=== PATIENT | female | born 1990 | race Two or more races ===

== ENCOUNTER 2019-08-04 23:01 | Emergency (ER) | payer MEDICAID ==
[~2019-08-04] VITALS: Ht 165.1 cm; Wt 49.9 kg
--- NOTE | 2019-08-04 23:16 | NUR ---
"LOWER BACK PAIN X1 DAY, NAUSEA/VOMITINGHASNT TAKEN INSULIN IN "YEARS" FOR DM" PT AWAKE, ALERT, PT ON MONITOR, VSS, NAD NOTED, PENDING MD MURCIA
[2019-08-05] MEDS ORDERED: ONDANSETRON HCL/PF 4 MG/2 ML VIAL ONE ×2 (00:01→03:03)
[2019-08-05 00:06] LABS: BASOPHILS # (AUTO) 0.1 /CMM (0.0-0.2); BASOPHILS % (AUTO) 0.7 % (0.0-2.0); EOSINOPHILS % (AUTO) 0.4 % (0.0-6.0); HEMATOCRIT 50 % (33-45); HEMOGLOBIN 17.5 g/dL (11.5-14.8); LYMPHOCYTES # (AUTO) 1.6 /CMM (0.8-4.8); LYMPHOCYTES % (AUTO) 12.3 % (20.0-44.0); MEAN CORPUSCULAR HGB CONC 35 g/dl (31.0-36.0); MEAN CORPUSCULAR VOLUME 93 fL (82-100); MONOCYTES # (AUTO) 0.3 /CMM (0.1-1.30); MONOCYTES % (AUTO) 2.3 % (2.0-12.0); NEUTROPHILS # (AUTO) 11.2 /CMM (1.8-8.9); NEUTROPHILS % (AUTO) 84.3 % (43.0-81.0); PLATELET COUNT (AUTO) 289 /CMM (150-450); RED BLOOD CELL COUNT(AUTO) 5.34 MIL/uL (4.0-5.2); WHITE BLOOD COUNT (AUTO) 13.2 K/uL (4.3-11.0)
[2019-08-05 00:21] LABS: ABG BASE EXCESS -2.5 mmol/L; ABG PH 7.382 (7.350-7.450); ABG PO2 90.6 mmHg (75.0-100.0); AaDO2 13.6 mmHg; COHb 1.2 % (0.5-1.5); MetHb 0.4 % (0.0-1.5); O2Hb 95.4 % (94.0-97.0); VENT MODE, BG ROOM AIR
--- NOTE | 2019-08-05 00:21 | NUR ---
URINE COLLECTED AND SENT TO LAB
[2019-08-05 00:22] LABS: CALCIUM, SERUM 9.4 mg/dL (8.5-10.1); CARBON DIOXIDE 25 mmol/L (21-32); CHLORIDE 98 mmol/L (98-107); CREATININE 0.7 mg/dL (0.6-1.3); GLUCOSE 343 mg/dL (74-106); POTASSIUM 4.5 mmol/L (3.5-5.1); SODIUM SERUM 133 mmol/L (136-145); UREA NITROGEN, BLOOD 9 mg/dL (7-18)
[2019-08-05 00:32] LABS: ALANINE AMINOTRANSFERASE 7 U/L (12-78); ALBUMIN 4.4 g/dL (3.4-5.0); ALKALINE PHOSPHATASE 113 U/L (46-116); ASPARTATE AMINOTRANSFERASE 18 U/L (15-37); BILIRUBIN,DIRECT 0.2 mg/dL (0.0-0.2); BILIRUBIN,TOTAL 0.8 mg/dL (0.2-1.0); TOTAL PROTEIN, SERUM 8.5 g/dL (6.4-8.2)
[2019-08-05 00:32] LABS: APPEARANCE,URINE Cloudy (CLEAR); BILIRUBIN,URINE Negative (NEGATIVE); BLOOD, URINE Negative Ery/uL (NEGATIVE); COLOR,URINE Yellow (YELLOW); KETONES,URINE >=160 (NEGATIVE); LEUKOCYTE ESTERASE ,URINE Negative (NEGATIVE); NITRITE, URINE Positive (NEGATIVE); PH,URINE 5.5 (5.0-8.0); PROTEIN,URINE 30 mg/dl (NEGATIVE); UGLUCOSE 500 MG/DL mg/dL (NEGATIVE); UROBILINOGEN,URINE 0.2 EU/dL (0.2)
[2019-08-05 00:49] LABS: MAGNESIUM 1.8 mg/dL (1.8-2.4); PHOSPHORUS 3.5 mg/dL (2.5-4.9)
[2019-08-05 00:53] LABS: ALCOHOL, BLOOD < 3 mg/dL (0-0)
[2019-08-05] MEDS ORDERED: KETOROLAC TROMETHAMINE INJ 30 MG/ML VIAL ONE (01:22)
[2019-08-05] MEDS ORDERED: MEROPENEM 1 G VIAL IV ONE (01:22)
[2019-08-05] MEDS ORDERED: MEROPENEM 1,000 MG in IV NS 0.9% 100 ML IV ONE (01:30)
[2019-08-05] MEDS ORDERED: KETOROLAC TROMETHAMINE INJ 30 MG/ML VIAL IV ONE (01:30)
[2019-08-05 01:40] LABS: BACTERIA,URINE Many /HPF (None Seen); RBC,URINE 0-2 /HPF (0-2); SQUAMOUS EPITHELIAL CELL,UR Few /HPF (None Seen)
--- NOTE | 2019-08-05 01:42 | NUR ---
REPORT GIVEN TO SIMONE SANTA FOR BALDO PT WILL BE TRANSPORTED TO 3RD FLOOR
[2019-08-05] MEDS ORDERED: IV NS 0.9% 1,000 ML BAG IV ONE ×2 (02:00)
[2019-08-05] MEDS ORDERED: ONDANSETRON HCL/PF - ER 4 MG/2 ML VIAL IV ONE ×2 (03:00)
[2019-08-05] MEDS ORDERED: INSULIN LISPRO/ASPART 100 UNIT/ML CARTRIDGE SQ ONE (03:30)
[2019-08-05] MEDS ORDERED: LORAZEPAM INJ 2 MG/ML VIAL ONE (03:35)
--- NOTE | 2019-08-05 03:59 | NUR ---
PT ACCEPTED TO [facility] BY DR STACK. ROOM 504. # FOR REPORT [phone]. AUTH FOR TRANSPORT [id number]
[2019-08-05] MEDS ORDERED: LORAZEPAM INJ 2 MG/ML VIAL IV ONE (04:00)
--- NOTE | 2019-08-05 04:06 | NUR ---
[facility]UCILLE [facility] EAT 0476. TRIP# [id number]
[2019-08-05 04:48] VITALS: BP 105/60
--- NOTE | 2019-08-05 05:27 | NUR ---
LUCILLE AT BEDSIDE FOR TRANSPORT TO [facility].
== END 2019-08-05 05:39 | disposition short-term general hospital (02) ==
LOC: ER 23:54
DX: N12 Tubulo-interstitial nephritis, not specified as acute or chronic (principal); E11.65 Type 2 diabetes mellitus with hyperglycemia; E86.0 Dehydration; F19.10 Other psychoactive substance abuse, uncomplicated; R00.0 Tachycardia, unspecified; F12.10 Cannabis abuse, uncomplicated; F15.10 Other stimulant abuse, uncomplicated; Z88.0 Allergy status to penicillin; Z60.2 Problems related to living alone
CPT/HCPCS: 36415; 36600 ×2; 51702; 71045; 80048; 80076; 80305; 80307; 81001; 82803; 82962 ×4; 83605; 83735; 84100; 84145; 84484; 84702; 85025; 85730; 87040 ×2; 87081; 87086; 93005; 96361; 96365; 96372; 96375; 96376; 99285; J1815; J1885; J2060; J2185 ×2; J2405 ×4; J7030 ×4; J7040 ×2; 81000-TC; 87186-TC; G0480

== ENCOUNTER 2020-03-01 16:32 | Emergency (ER) | payer MEDICAID, OTHER ==
[~2020-03-01] VITALS: Ht 165.1 cm; Wt 49.9 kg
[2020-03-01] MEDS ORDERED: HYDROCODONE/APAP 5/325MG 1 EACH TABLET ONE (19:32)
[2020-03-01] MEDS: HYDROCODONE/APAP 5/325MG 1 EACH TABLET PO ONE (19:39)
--- NOTE | 2020-03-01 19:40 | NUR ---
URINE COLLECTED VIA CLEAN CATCH AND SENT TO LAB
[2020-03-01 19:45] LABS: APPEARANCE,URINE Cloudy (CLEAR); BILIRUBIN,URINE Negative (NEGATIVE); BLOOD, URINE Trace-intact Ery/uL (NEGATIVE); COLOR,URINE Yellow (YELLOW); KETONES,URINE 40 (NEGATIVE); LEUKOCYTE ESTERASE ,URINE Negative (NEGATIVE); NITRITE, URINE Negative (NEGATIVE); PH,URINE 6.5 (5.0-8.0); PROTEIN,URINE 30 mg/dl (NEGATIVE); UGLUCOSE 500 MG/DL mg/dL (NEGATIVE)
[2020-03-01 19:58] LABS: BACTERIA,URINE Many /HPF (None Seen)
[2020-03-01 21:53] VITALS: BP 118/76
--- NOTE | 2020-03-01 21:53 | NUR ---
Patient discharged to home in stable condition. Written and verbal after care instructions given. Patient verbalizes understanding of instruction. Pt ambulatory with a steady gait
== END 2020-03-01 21:54 | disposition home or self-care (01) ==
LOC: ER 16:37
DX: M54.5 Low back pain (principal); N39.0 Urinary tract infection, site not specified; E10.65 Type 1 diabetes mellitus with hyperglycemia; Z88.0 Allergy status to penicillin; V49.59XA Passenger injured in collision with other motor vehicles in traffic accident, initial encounter; Y93.89 Activity, other specified; Y92.413 State road as the place of occurrence of the external cause; Y99.8 Other external cause status
CPT/HCPCS: 72131-TC; 81000-TC; 82962-TC; 84703-TC; 87086-TC

== ENCOUNTER 2020-05-26 19:59 | Emergency (ER) | payer MEDICAID ==
[~2020-05-26] VITALS: Ht 162.6 cm; Wt 53.1 kg
[2020-05-26] MEDS ORDERED: ONDANSETRON HCL/PF 4 MG/2 ML VIAL ONE ×2 (20:13→22:06)
[2020-05-26] MEDS ORDERED: MORPHINE SULFATE INJ 4 MG/ML DISP.SYRIN ONE ×2 (20:13→22:06)
--- NOTE | 2020-05-26 20:16 | NUR ---
PATIENT CAME TO ER BED 9 BIB RA C/O NAUSEA AND VOMITING, ALONG WITH BLOOD SUGAR OF 395, PER RESCUE AMBULANCE REPORT. PATIENT STATES THAT SHE HAD UPPER BACK PAIN SINCE A MONTH AGO FROM A FALL. PATIENT STATES THAT SHE HAS BEEN VOMITING SINCE TODAY. PATIENT STATES THAT SHE ALSO HAD METH RECENTLY, BUT COULD NOT RECALL HOW LONG AGO. PATIENT IS AAOX4. NO SOB. BREATHING EVENLY AND UNLABORED ON ROOM AIR. CONNECTED TO MONITOR
--- NOTE | 2020-05-26 20:20 | NUR ---
SENIOR INSIGHT MANAGER INTERNATIONAL AT BEDSIDE FOR BLOOD DRAW
[2020-05-26 20:29] LABS: BASOPHILS # (AUTO) 0.1 /CMM (0.0-0.2); BASOPHILS % (AUTO) 0.8 % (0.0-2.0); EOSINOPHILS % (AUTO) 0.9 % (0.0-6.0); HEMATOCRIT 44 % (33-45); HEMOGLOBIN 14.9 g/dL (11.5-14.8); LYMPHOCYTES # (AUTO) 1.6 /CMM (0.8-4.8); LYMPHOCYTES % (AUTO) 14.8 % (20.0-44.0); MEAN CORPUSCULAR HGB CONC 34 g/dl (31.0-36.0); MEAN CORPUSCULAR VOLUME 91 fL (82-100); MONOCYTES # (AUTO) 0.3 /CMM (0.1-1.30); MONOCYTES % (AUTO) 2.6 % (2.0-12.0); NEUTROPHILS # (AUTO) 8.8 /CMM (1.8-8.9); NEUTROPHILS % (AUTO) 80.9 % (43.0-81.0); PLATELET COUNT (AUTO) 366 /CMM (150-450); RED BLOOD CELL COUNT(AUTO) 4.86 MIL/uL (4.0-5.2); WHITE BLOOD COUNT (AUTO) 10.9 K/uL (4.3-11.0)
[2020-05-26] MEDS ORDERED: IV NS 0.9% 1,000 ML BAG IV ONE ×2 (20:30→21:30)
[2020-05-26] MEDS ORDERED: ONDANSETRON HCL/PF 4 MG/2 ML VIAL IVP ONE ×2 (20:30→22:00)
[2020-05-26] MEDS ORDERED: MORPHINE SULFATE INJ 2 MG/ML DISP.SYRIN IV ONE ×2 (20:30→22:00)
--- NOTE | 2020-05-26 20:30 | NUR ---
ADDENDUM: Intravenous End Time Documentation: Normal saline 1 liter (IV-WO) : start time: 2029 ; end time: 2129 : IV site: Left Hand PIV # 20 Port # 1
[2020-05-26 20:46] LABS: ALBUMIN 4.1 g/dL (3.4-5.0); BILIRUBIN,DIRECT 0.1 mg/dL (0.0-0.2); BILIRUBIN,TOTAL 0.4 mg/dL (0.2-1.0); CALCIUM, SERUM 9.1 mg/dL (8.5-10.1); CREATININE 0.7 mg/dL (0.6-1.3); POTASSIUM 3.9 mmol/L (3.5-5.1)
[2020-05-26] MEDS ORDERED: INSULIN REGULAR, HUMAN 100 UNIT/ML 10 ML VIAL ONE (21:22)
[2020-05-26] MEDS ORDERED: INSULIN REGULAR, HUMAN 100 UNIT/ML 10 ML VIAL SQ ONE (21:30)
--- NOTE | 2020-05-26 23:30 | NUR ---
IV removed. Catheter intact and site benign. Pressure and 4x4 applied to site. No bleeding noted.
[2020-05-26 23:31] VITALS: BP 129/82
--- NOTE | 2020-05-26 23:31 | NUR ---
Patient discharged to home in stable condition. Written and verbal after care instructions given. Patient verbalizes understanding of instruction.
--- NOTE | 2020-05-26 23:31 | NUR ---
Picked up by aunt's roomate (Mitchell).
--- NOTE | 2020-05-26 23:31 | NUR ---
Patient is ambulatory with a steady gait.
== END 2020-05-26 23:31 | disposition home or self-care (01) ==
LOC: ER 20:00
DX: E11.65 Type 2 diabetes mellitus with hyperglycemia (principal); M54.5 Low back pain; Z88.0 Allergy status to penicillin
CPT/HCPCS: 36415; 80048; 80076; 82962 ×3; 83690; 85025; 96361; 96372; 96374; 96375; 96376; 99285; J1815; J2270 ×2; J2405 ×2; J7030 ×2

== ENCOUNTER 2020-06-15 11:38 | Emergency (ER) | payer MEDICAID ==
[~2020-06-15] VITALS: Ht 152.4 cm; Wt 52.2 kg
--- NOTE | 2020-06-15 11:40 | NUR ---
PT BIBA RA 39 From Home "Back pain/Nausea/vomiting BS 406" PT IS AAOX4, NOT IN RESPIRATORY DISTRESS, HOOKED TO SIZE STAMPER, KEPT RESTED AND COMFORTABLE. WILL CONTINUE TO MONITOR.
--- NOTE | 2020-06-15 11:44 | NUR ---
SEEN AND EXAMINED BY .
--- NOTE | 2020-06-15 11:50 | NUR ---
URINE SPECIMEN COLLECTED AND SENT TO LAB.
--- NOTE | 2020-06-15 11:59 | NUR ---
ER PHLEB AT BEDSIDE FOR BLOOD DRAW.
[2020-06-15] MEDS ORDERED: IV NS 0.9% 1,000 ML BAG IV ONE ×2 (12:00→13:30)
[2020-06-15] MEDS ORDERED: MORPHINE SULFATE INJ 2 MG/ML DISP.SYRIN IV ONE (12:00)
[2020-06-15] MEDS ORDERED: ONDANSETRON HCL/PF 4 MG/2 ML VIAL ONE (12:01)
[2020-06-15] MEDS ORDERED: MORPHINE SULFATE INJ 4 MG/ML DISP.SYRIN ONE (12:02)
[2020-06-15 12:15] LABS: BASOPHILS # (AUTO) 0.1 /CMM (0.0-0.2); BASOPHILS % (AUTO) 0.7 % (0.0-2.0); EOSINOPHILS % (AUTO) 0.1 % (0.0-6.0); HEMATOCRIT 45 % (33-45); HEMOGLOBIN 15.3 g/dL (11.5-14.8); LYMPHOCYTES # (AUTO) 1.5 /CMM (0.8-4.8); LYMPHOCYTES % (AUTO) 12.3 % (20.0-44.0); MEAN CORPUSCULAR HGB CONC 34 g/dl (31.0-36.0); MEAN CORPUSCULAR VOLUME 92 fL (82-100); MONOCYTES # (AUTO) 0.4 /CMM (0.1-1.30); MONOCYTES % (AUTO) 2.9 % (2.0-12.0); NEUTROPHILS # (AUTO) 10.1 /CMM (1.8-8.9); PLATELET COUNT (AUTO) 292 /CMM (150-450); RED BLOOD CELL COUNT(AUTO) 4.91 MIL/uL (4.0-5.2); WHITE BLOOD COUNT (AUTO) 12.1 K/uL (4.3-11.0)
[2020-06-15] MEDS ORDERED: ONDANSETRON HCL/PF 4 MG/2 ML VIAL IV ONE (12:30)
[2020-06-15 12:44] LABS: ALBUMIN 3.8 g/dL (3.4-5.0); BILIRUBIN,DIRECT 0.2 mg/dL (0.0-0.2); BILIRUBIN,TOTAL 0.6 mg/dL (0.2-1.0); CREATININE 0.6 mg/dL (0.6-1.3); POTASSIUM 3.7 mmol/L (3.5-5.1); TOTAL PROTEIN, SERUM 7.8 g/dL (6.4-8.2)
[2020-06-15 12:52] LABS: APPEARANCE,URINE CLEAR (CLEAR); BILIRUBIN,URINE NEGATIVE (NEGATIVE); BLOOD, URINE NEGATIVE Ery/uL (NEGATIVE); COLOR,URINE YELLOW (YELLOW); KETONES,URINE 15 (NEGATIVE); LEUKOCYTE ESTERASE ,URINE NEGATIVE (NEGATIVE); NITRITE, URINE NEGATIVE (NEGATIVE); PROTEIN,URINE NEGATIVE (NEGATIVE); UGLUCOSE >=1000 mg/dL (NEGATIVE); UROBILINOGEN,URINE 0.2 EU/dL (0.2)
[2020-06-15] MEDS ORDERED: INSULIN REGULAR, HUMAN 100 UNIT/ML 10 ML VIAL ONE (12:58)
[2020-06-15] MEDS ORDERED: INSULIN REGULAR, HUMAN 100 UNIT/ML 10 ML VIAL SQ ONE (13:00)
[2020-06-15 13:16] LABS: BACTERIA,URINE Rare /HPF (None Seen); SQUAMOUS EPITHELIAL CELL,UR Few /HPF (None Seen)
[2020-06-15 14:08] VITALS: BP 143/91
== END 2020-06-15 14:10 | disposition home or self-care (01) ==
LOC: ER 11:39
DX: E11.65 Type 2 diabetes mellitus with hyperglycemia (principal); M54.5 Low back pain; G89.29 Other chronic pain; Z88.0 Allergy status to penicillin
CPT/HCPCS: 36415; 80048; 80076; 81001; 82962 ×2; 84703; 85025; 96361; 96372; 96374; 96375; 99284; J1815; J2270; J2405; J7030; 81000-TC

== ENCOUNTER 2020-09-17 23:51 | Emergency (ER) | payer MEDICAID ==
[~2020-09-17] VITALS: Ht 165.1 cm; Wt 49.9 kg
[2020-09-18] MEDS ORDERED: MORPHINE SULFATE INJ 2 MG/ML DISP.SYRIN IV ONE
[2020-09-18] MEDS ORDERED: IV NS 0.9% 1,000 ML BAG IV ONE
[2020-09-18] MEDS ORDERED: ONDANSETRON HCL/PF 4 MG/2 ML VIAL IVP ONE
--- NOTE | 2020-09-18 | NUR ---
BIBRA 102 FOR C/O ABD PAIN, N/V AND LOWER BACK PAIN X 1 DAY.
[2020-09-18 00:10] LABS: BASOPHILS % (AUTO) 0.2 % (0.0-2.0); EOSINOPHILS % (AUTO) 0.8 % (0.0-6.0); HEMATOCRIT 47 % (33-45); HEMOGLOBIN 15.6 g/dL (11.5-14.8); LYMPHOCYTES # (AUTO) 1.8 /CMM (0.8-4.8); LYMPHOCYTES % (AUTO) 13.4 % (20.0-44.0); MEAN CORPUSCULAR HGB CONC 34 g/dl (31.0-36.0); MEAN CORPUSCULAR VOLUME 92 fL (82-100); MONOCYTES # (AUTO) 0.4 /CMM (0.1-1.30); NEUTROPHILS % (AUTO) 82.6 % (43.0-81.0); PLATELET COUNT (AUTO) 376 /CMM (150-450); RED BLOOD CELL COUNT(AUTO) 5.07 MIL/uL (4.0-5.2); WHITE BLOOD COUNT (AUTO) 13.3 K/uL (4.3-11.0)
[2020-09-18] MEDS ORDERED: MORPHINE SULFATE INJ 4 MG/ML DISP.SYRIN ONE (00:10)
[2020-09-18] MEDS ORDERED: ONDANSETRON HCL/PF 4 MG/2 ML VIAL ONE (00:10)
[2020-09-18 00:27] LABS: ALBUMIN 3.7 g/dL (3.4-5.0); BILIRUBIN,DIRECT 0.1 mg/dL (0.0-0.2); BILIRUBIN,TOTAL 0.4 mg/dL (0.2-1.0); CALCIUM, SERUM 9.3 mg/dL (8.5-10.1); CREATININE 0.7 mg/dL (0.6-1.3); TOTAL PROTEIN, SERUM 8.3 g/dL (6.4-8.2)
--- NOTE | 2020-09-18 01:00 | NUR ---
Patient is resting comfortably in bed with eyes closed. Easily aroused. VSS
--- NOTE | 2020-09-18 02:16 | NUR ---
pt is medically stable for d/c per MD. IV removed. Catheter intact and site benign. Pressure and 4x4 applied to site. No bleeding noted.Patient discharged to home in stable condition. Written and verbal after care instructions given. Patient verbalizes understanding of instruction.
[2020-09-18 02:18] VITALS: BP 131/72
== END 2020-09-18 02:19 | disposition home or self-care (01) ==
LOC: ER 23:55
DX: E10.65 Type 1 diabetes mellitus with hyperglycemia (principal); R10.84 Generalized abdominal pain; R11.2 Nausea with vomiting, unspecified; M54.5 Low back pain; Z88.0 Allergy status to penicillin
CPT/HCPCS: 36415; 80048; 80076; 83690; 85025; 85730; 96361; 96374; 96375; 99284; J2270; J2405; J7030

== ENCOUNTER 2020-09-19 15:03 | Emergency (ER) | payer MEDICAID ==
[~2020-09-19] VITALS: Ht 162.6 cm; Wt 58.5 kg
[2020-09-19] MEDS ORDERED: IV NS 0.9% 1,000 ML BAG IV ONE (15:30)
[2020-09-19] MEDS ORDERED: LORAZEPAM INJ 2 MG/ML VIAL IV ONE (15:30)
[2020-09-19] MEDS ORDERED: oxyCODONE/APAP (5/325 MG) 1 UDTAB TABLET PO ONE (15:30)
[2020-09-19 15:33] LABS: BASOPHILS % (AUTO) 0.3 % (0.0-2.0); EOSINOPHILS % (AUTO) 0.5 % (0.0-6.0); HEMATOCRIT 43 % (33-45); HEMOGLOBIN 14.5 g/dL (11.5-14.8); LYMPHOCYTES # (AUTO) 1.3 /CMM (0.8-4.8); LYMPHOCYTES % (AUTO) 18.4 % (20.0-44.0); MEAN CORPUSCULAR HGB CONC 34 g/dl (31.0-36.0); MEAN CORPUSCULAR VOLUME 93 fL (82-100); MONOCYTES # (AUTO) 0.4 /CMM (0.1-1.30); MONOCYTES % (AUTO) 5.8 % (2.0-12.0); NEUTROPHILS # (AUTO) 5.3 /CMM (1.8-8.9); PLATELET COUNT (AUTO) 351 /CMM (150-450); RED BLOOD CELL COUNT(AUTO) 4.62 MIL/uL (4.0-5.2); WHITE BLOOD COUNT (AUTO) 7.1 K/uL (4.3-11.0)
--- NOTE | 2020-09-19 15:34 | NUR ---
BIBA 878 From Home "back pain/flank pain. High sugar-ran out of NPH". PT AAOX4, VSS. RR EVEN & UNLABORED. DENIES CP, SOB, DIZZINESS, N/V AT THIS TIME. PT SEEN & EVAL'D BY DR. NGO. WILL CONT TO MONITOR.
[2020-09-19] MEDS ORDERED: LORAZEPAM INJ 2 MG/ML VIAL ONE (15:40)
[2020-09-19] MEDS ORDERED: oxyCODONE/APAP (5/325 MG) 1 UDTAB TABLET ONE (15:40)
[2020-09-19 15:47] LABS: ALBUMIN 2.9 g/dL (3.4-5.0); BILIRUBIN,DIRECT 0.2 mg/dL (0.0-0.2); BILIRUBIN,TOTAL 0.6 mg/dL (0.2-1.0); CALCIUM, SERUM 8.2 mg/dL (8.5-10.1); CREATININE 1.2 mg/dL (0.6-1.3); POTASSIUM 3.9 mmol/L (3.5-5.1); TOTAL PROTEIN, SERUM 6.8 g/dL (6.4-8.2)
--- NOTE | 2020-09-19 15:52 | NUR ---
MEDICATED FOR PAIN PER ERMD ORDER, PT TALON WELL.
[2020-09-19] MEDS ORDERED: INSULIN REGULAR, HUMAN 100 UNIT/ML 10 ML VIAL IV ONE (16:00)
[2020-09-19] MEDS ORDERED: INSULIN REGULAR, HUMAN 100 UNIT/ML 10 ML VIAL ONE (16:00)
--- NOTE | 2020-09-19 16:17 | NUR ---
PT TO CT VIA [facility].
[2020-09-19] MEDS ORDERED: IV NS 0.9% 500 ML BAG IV ONE (16:30)
--- NOTE | 2020-09-19 17:47 | NUR ---
Patient discharged to home in stable condition. Written and verbal after care instructions given. Patient verbalizes understanding of instruction. IV removed. Catheter intact and site benign. Pressure and 4x4 applied to site. No bleeding noted.
[2020-09-19 17:48] VITALS: BP 124/78
== END 2020-09-19 18:06 | disposition home or self-care (01) ==
LOC: ER 15:05
DX: F15.129 Other stimulant abuse with intoxication, unspecified (principal); G89.4 Chronic pain syndrome; F11.20 Opioid dependence, uncomplicated; E10.65 Type 1 diabetes mellitus with hyperglycemia; R10.84 Generalized abdominal pain; Z88.0 Allergy status to penicillin
CPT/HCPCS: 36415; 74176; 80048; 80076; 82962; 83690; 84702; 85025; 96360; 96361; 96372; 99284; J1815; J7030 ×2; J2060

== ENCOUNTER 2021-09-01 11:38 | Emergency (ER) | payer MEDICAID, OTHER ==
[~2021-09-01] VITALS: Ht 167.6 cm; Wt 65.8 kg
[2021-09-01 11:48] VITALS: BP 137/88
[2021-09-01] MEDS ORDERED: HYDROCODONE/APAP 10/325MG TABLET PO ONE (12:00)
[2021-09-01] MEDS ORDERED: SULFAMETH/TRIMETH 800/160 MG 1 UDTAB TABLET PO ONE (12:00)
[2021-09-01] MEDS ORDERED: INSULIN REGULAR, HUMAN 100 UNIT/ML 10 ML VIAL SQ ONE (12:00)
[2021-09-01] MEDS ORDERED: SULFAMETH/TRIMETH 800/160 MG 1 UDTAB TABLET ONE (12:04)
[2021-09-01] MEDS ORDERED: HYDROCODONE/APAP 10/325MG TABLET ONE (12:04)
[2021-09-01] MEDS ORDERED: INSULIN REGULAR, HUMAN 100 UNIT/ML 10 ML VIAL ONE (12:05)
[2021-09-01] MEDS ORDERED: HYDR-3976 GT (12:21)
[2021-09-01] MEDS ORDERED: SULF1TAB48 PO (12:21)
--- NOTE | 2021-09-01 12:51 | NUR ---
Patient discharged to home in stable condition. Written and verbal after care instructions given. Patient verbalizes understanding of instruction.
== END 2021-09-01 12:51 | disposition home or self-care (01) ==
LOC: ER 11:42
DX: T81.89XA Other complications of procedures, not elsewhere classified, initial encounter (principal); E11.9 Type 2 diabetes mellitus without complications; G89.4 Chronic pain syndrome; F15.10 Other stimulant abuse, uncomplicated; Z88.0 Allergy status to penicillin
CPT/HCPCS: 96372; 99283; J1815

== ENCOUNTER 2022-01-14 16:33 | Emergency (ER) | payer OTHER ==
[~2022-01-14] VITALS: Ht 165.1 cm; Wt 49.9 kg
[~2022-01-14 16:33] MED LIST: HYDR-3976 GT; SULF1TAB48 PO
--- NOTE | 2022-01-14 16:47 | NUR ---
PT CAME TO ER C/O SEVERE L SIDED BACK PAIN , NAUSEA, & VOMITING X 2 DAYS AGO. BLOOD SUGAR 376 PER EMS AND SHE IS NON-COMPLIANT WITH INSULIN. AAOX4, BREATHING EVEN AND UNLABORED. TO ER BED 12, CHANGED TO GOWN. ON MONITOR. WILL CONTINUE TO MONITOR.
[2022-01-14] MEDS ORDERED: ONDANSETRON HCL/PF 4 MG/2 ML VIAL ONE ×2 (16:53→18:37)
[2022-01-14] MEDS ORDERED: IV NS 0.9% 1,000 ML IV ONE (17:00)
[2022-01-14] MEDS ORDERED: ONDANSETRON HCL/PF - ER 4 MG/2 ML VIAL IV ONE (17:00)
--- NOTE | 2022-01-14 17:00 | NUR ---
BS 353
--- NOTE | 2022-01-14 17:09 | NUR ---
BLOOD SAMPLE OBTAINED AND SENT TO LAB
--- NOTE | 2022-01-14 17:14 | NUR ---
URINE SAMPLE OBTAINED AND SENT TO LAB
[2022-01-14] MEDS ORDERED: CYCLOBENZAPRINE 10 MG TABLET ONE (17:19)
[2022-01-14] MEDS ORDERED: TRAMADOL HCL 50 MG TABLET ONE (17:19)
[2022-01-14] MEDS ORDERED: TRAMADOL HCL 50 MG TABLET PO ONE (17:30)
[2022-01-14] MEDS ORDERED: CYCLOBENZAPRINE 10 MG TABLET PO ONE (17:30)
[2022-01-14 17:33] LABS: BASOPHILS # (AUTO) 0.2 K/uL (0.0-0.2); BASOPHILS % (AUTO) 1.1 % (0.0-2.0); EOSINOPHILS % (AUTO) 0.5 % (0.0-6.0); HEMATOCRIT 45 % (33-45); HEMOGLOBIN 15.1 g/dL (11.5-14.8); LYMPHOCYTES # (AUTO) 1.9 K/uL (0.8-4.8); LYMPHOCYTES % (AUTO) 14.2 % (20.0-44.0); MEAN CORPUSCULAR HGB CONC 34 g/dl (31.0-36.0); MEAN CORPUSCULAR VOLUME 89 fL (82-100); MONOCYTES # (AUTO) 0.4 K/uL (0.1-1.30); MONOCYTES % (AUTO) 3.1 % (2.0-12.0); NEUTROPHILS % (AUTO) 81.1 % (43.0-81.0); PLATELET COUNT (AUTO) 417 K/uL (150-450); RED BLOOD CELL COUNT(AUTO) 5.04 MIL/uL (4.0-5.2); WHITE BLOOD COUNT (AUTO) 13.6 K/uL (4.3-11.0)
[2022-01-14 17:41] LABS: CALCIUM, SERUM 8.6 mg/dL (8.5-10.1); CREATININE 0.7 mg/dL (0.6-1.3); POTASSIUM 4.1 mmol/L (3.5-5.1)
[2022-01-14 18:02] LABS: BILIRUBIN,URINE NEGATIVE (NEGATIVE); COLOR,URINE YELLOW (YELLOW); LEUKOCYTE ESTERASE ,URINE NEGATIVE (NEGATIVE); NITRITE, URINE POSITIVE (NEGATIVE); PH,URINE 5.5 (5.0-8.0); PROTEIN,URINE 100 mg/dl (NEGATIVE); UGLUCOSE >=1000 mg/dL (NEGATIVE); UROBILINOGEN,URINE 0.2 EU/dL (0.2)
[2022-01-14 18:06] LABS: BACTERIA,URINE 4+ /HPF (None Seen); SQUAMOUS EPITHELIAL CELL,UR Many /HPF (None Seen); YEAST,URINE None Seen /HPF (None Seen)
[2022-01-14 18:07] LABS: MUCUS,URINE Moderate /LPF (None Seen); URINE AMORPHOUS URATE Few /HPF (None Seen)
[2022-01-14] MEDS ORDERED: ONDANSETRON HCL/PF 4 MG/2 ML VIAL IV ONE (19:00)
[2022-01-14] MEDS ORDERED: INSU100I47 SUBCUT (19:28)
[2022-01-14] MEDS ORDERED: NITR100C6 PO (19:28)
--- NOTE | 2022-01-14 20:02 | NUR ---
IV removed. Catheter intact and site benign. Pressure and 4x4 applied to site. No bleeding noted.
--- NOTE | 2022-01-14 20:02 | NUR ---
Patient discharged to home in stable condition. Written and verbal after care instructions given. Patient verbalizes understanding of instruction.
[2022-01-14 20:17] VITALS: BP 139/97
== END 2022-01-14 20:05 | disposition home or self-care (01) ==
LOC: ER 16:42
DX: E10.65 Type 1 diabetes mellitus with hyperglycemia (principal); G89.4 Chronic pain syndrome; N39.0 Urinary tract infection, site not specified; B96.89 Other specified bacterial agents as the cause of diseases classified elsewhere; Z88.6 Allergy status to analgesic agent; Z88.0 Allergy status to penicillin; Z79.4 Long term (current) use of insulin; Z79.891 Long term (current) use of opiate analgesic; Z79.899 Other long term (current) drug therapy
CPT/HCPCS: 36415; 71100; 80048; 80307; 81001; 82962; 84703; 85025; 87086; 96361; 96374; 96376; 99284; J2405 ×2; J7030

== ENCOUNTER 2022-02-18 14:40 | Inpatient (IN) | payer OTHER ==
[~2022-02-18] VITALS: Ht 165.1 cm; Wt 54.9 kg
[~2022-02-18 14:40] MED LIST changes: +INSU100I47 SUBCUT; +NITR100C6 PO
--- NOTE | 2022-02-18 14:40 | NUR ---
PT BIBRA 102 FROM HOME C/O EPIGASTRIC PAIN RADIATES TO RIGHT SIDE STARTED 1HOUR EXTRACTOR PLANT OPERATOR. PT IS AAOX4, NOT IN RESPIRATORY DISTRESS, HOOKED TO V/S MONITOR, KEPT RESTED AND COMFORTABLE. WILL, CONTINUE TO MONITOR.
--- NOTE | 2022-02-18 15:07 | NUR ---
SEEN AND EXMAINED BY .
--- NOTE | 2022-02-18 15:23 | NUR ---
HAIR DESIGNER AT BEDSIDE.
[2022-02-18] MEDS ORDERED: MORPHINE SULFATE INJ 2 MG/ML DISP.SYRIN IV ONE ×2 (15:30→17:30)
[2022-02-18] MEDS ORDERED: IV NS 0.9% 1,000 ML BAG IV ONE ×2 (15:30)
[2022-02-18 15:32] LABS: BASOPHILS % (AUTO) 0.2 % (0.0-2.0); HEMATOCRIT 43 % (33-45); HEMOGLOBIN 15.2 g/dL (11.5-14.8); LYMPHOCYTES # (AUTO) 0.5 K/uL (0.8-4.8); LYMPHOCYTES % (AUTO) 3.7 % (20.0-44.0); MEAN CORPUSCULAR HGB CONC 35 g/dl (31.0-36.0); MEAN CORPUSCULAR VOLUME 86 fL (82-100); MONOCYTES # (AUTO) 0.3 K/uL (0.1-1.30); MONOCYTES % (AUTO) 2.3 % (2.0-12.0); NEUTROPHILS # (AUTO) 11.8 K/uL (1.8-8.9); NEUTROPHILS % (AUTO) 93.8 % (43.0-81.0); PLATELET COUNT (AUTO) 317 K/uL (150-450); RED BLOOD CELL COUNT(AUTO) 5.07 MIL/uL (4.0-5.2); WHITE BLOOD COUNT (AUTO) 12.5 K/uL (4.3-11.0)
[2022-02-18] MEDS ORDERED: MORPHINE SULFATE INJ 4 MG/ML DISP.SYRIN ONE ×2 (15:42→17:30)
[2022-02-18] MEDS ORDERED: IOHEXOL-350 100 ML VIAL IV ONE (15:45)
[2022-02-18] MEDS ORDERED: CT SWABBABLE VALVE TRANS SET 1 EA INFUS.SET MC ONE (15:45)
[2022-02-18] MEDS ORDERED: IV NS 0.9% 250 ML IV ONE (15:45)
[2022-02-18 15:50] LABS: CALCIUM, SERUM 8.3 mg/dL (8.5-10.1); CARBON DIOXIDE 25 mmol/L (21-32); CHLORIDE 93 mmol/L (98-107); CREATININE 0.5 mg/dL (0.6-1.3); GLUCOSE 336 mg/dL (74-106); POTASSIUM 3.4 mmol/L (3.5-5.1); SODIUM SERUM 129 mmol/L (136-145); UREA NITROGEN, BLOOD 10 mg/dL (7-18)
[2022-02-18 15:57] LABS: ALANINE AMINOTRANSFERASE 40 U/L (12-78); ALBUMIN 2.6 g/dL (3.4-5.0); ALKALINE PHOSPHATASE 114 U/L (46-116); ASPARTATE AMINOTRANSFERASE 14 U/L (15-37); BILIRUBIN,DIRECT 0.2 mg/dL (0.0-0.2); BILIRUBIN,TOTAL 0.7 mg/dL (0.2-1.0); LIPASE 69 U/L (73-393); TOTAL PROTEIN, SERUM 6.1 g/dL (6.4-8.2)
[2022-02-18] MEDS ORDERED: LEVOFLOXACIN 750 MG /D5W 150ML PIGGYBACK IV ONE (17:00)
[2022-02-18] MEDS ORDERED: VANCOMYCIN 1 GM in IV D5W 250 ML IV ONE (17:00)
--- NOTE | 2022-02-18 17:21 | NUR ---
MOVE SHEET SUBMITTED AND CALLED FOR TELE BED.
[2022-02-18] MEDS: ALBUTEROL FS 2.5 MG/3 ML VIAL.NEB NEB ONE ×2 (17:26→17:37)
[2022-02-18] MEDS ORDERED: ALBUTEROL FS 2.5 MG/3 ML VIAL.NEB ONE (17:32)
[2022-02-18] MEDS ORDERED: INSU100V42 SQ (17:51)
--- NOTE | 2022-02-18 18:00 | NUR ---
SWAB FOR COVID 19 SENT TO LAB
--- NOTE | 2022-02-18 18:04 | NUR ---
[facility] CALLED CHRISTMAS TREE CONTRACTOR PAGED.
--- NOTE | 2022-02-18 18:29 | NUR ---
URINE SAMPLE SENT TO LAB
[2022-02-18] MEDS ORDERED: Z GUARD REMEDY 4 OZ OINT TP PRN (18:30)
[2022-02-18] MEDS ORDERED: MAG HYDROX/AL HYDROX/SIMETH 30 ML UDC PO PRN (18:30)
[2022-02-18] MEDS ORDERED: DEXTROSE 50%-WATER 50 ML DISP.SYRIN IV PRN (18:30)
[2022-02-18] MEDS ORDERED: IV NS 0.9% 1,000 ML IV PRN (18:30)
[2022-02-18] MEDS ORDERED: IV NS 0.9% 500 ML BAG IV ONE (19:00)
[2022-02-18 20:10] LABS: BILIRUBIN,URINE NEGATIVE (NEGATIVE); COLOR,URINE YELLOW (YELLOW); LEUKOCYTE ESTERASE ,URINE NEGATIVE (NEGATIVE); NITRITE, URINE NEGATIVE (NEGATIVE); PH,URINE 5.5 (5.0-8.0); PROTEIN,URINE 100 mg/dl (NEGATIVE); UGLUCOSE >=1000 mg/dL (NEGATIVE); UROBILINOGEN,URINE 0.2 EU/dL (0.2)
--- NOTE | 2022-02-18 20:15 | NUR ---
2014 ADMITTED FROM ER 31 YEAR OLD FEMALE VIA BED WITH DX OF PNEUMONIA. PATIENT AWAKE AND VERBALLY RESPONSIVE. RECEIVED ON SIMPLE FACE MASK AT 6L WITH O2 SATURATION NOTED AT 88%. PATIENT NOT IN DISTRESS AND ABLE TO WALK TO BED AND BATHROOM WITH ASSIST. CONNECTED TO MANUFACTURING TEST ENGINEER, HR NOTED IN THE 140S-150S. PATIENT BACK IN BED AND DENIES FEELING DIZZY BUT EXPRESSED BEING SHORT OF BREATH. INCREASED OXYGEN TO 10L VIA FACE MASK, NOTED O2 SATURATION WENT UP TO 92-93%. PATIENT STATED SHE IS "OK". SKIN ASSESSMENT AND ADMISSION CARE DONE. NO SKIN BREAKDOWN NOTED. PATIENT ON HER MONTHLY MENSTRUAL CYCLE. IV ACCESS ON RIGHT AC INTACT AND PATENT. VITAL SIGNS CHECKED. BP IN THE 80S WHEN CHECKED TWICE. CALL LIGHT PLACED WITHIN REACH AND INSTRUCTED TO CALL FOR ASSISTANCE.
[2022-02-18 20:24] LABS: BACTERIA,URINE Rare /HPF (None Seen); SQUAMOUS EPITHELIAL CELL,UR Moderate /HPF (None Seen); WBC,URINE 0-2 /HPF (0-3)
--- NOTE | 2022-02-18 20:24 | NUR ---
REPORT GIVEN TO ARABELLA CADET 107-1. PT TRANSFERED WITH MONITOR. SIMPLE FACE MASK 8L.
--- NOTE | 2022-02-18 20:38 | NUR ---
2037 PAGED [facility] PICK UP OPERATOR TO REPORT HR IN THE 140S AND O2 SATURATION IN THE LOW 90S ON SIMPLE FACE MASK AT 10 LITERS. AWAITING CALL BACK.
--- NOTE | 2022-02-18 20:58 | NUR ---
2054 STILL WAITING FOR [facility] SHEET METAL SHOP HELPER TO CALL BACK. HR STILL IN THE 140S SINUS, O2 SATURATION IMPROVED TO 95% ON 10L FACE MASK. PATIENT SLEEPING AT THIS TIME. HOB ELEVATED FOR MAXIMUM OXYGENATION. WILL CONT. TO MONITOR.
--- NOTE | 2022-02-18 21:10 | NUR ---
2109 HERIBERTO MCCULLOUGH CALLED AND UPDATED ON PATIENT'S CURRENT CONDITION WITH NO ORDER AT THIS TIME. PATIENT IS BEING MONITORED CLOSELY.
[2022-02-18] MEDS ORDERED: MAGNESIUM HYDROXIDE 30 ML UDC PO PRN (22:00)
[2022-02-18] MEDS: BLOOD SUGAR DIAGNOSTIC 1 EACH STRIP VI SCH (22:32)
[2022-02-18] MEDS: *INSULIN REGULAR(HUMULIN R)HUM 100 UNIT/ML VIAL SQ PRN (22:35)
[2022-02-18] MEDS: HYDROCODONE/APAP 5/325MG TABLET PO PRN (22:38)
--- NOTE | 2022-02-18 22:41 | NUR ---
RN NOTES: PT C/O MODERATE PAIN 7/10 PAIN SCALE ON BACK AREA. NORCO GIVEN PRN ORDERED. PT TOLERATED WELL. WILL CONTINUE TO MONITOR
[2022-02-19] VITALS: BP 91/54
[2022-02-19] MEDS: ONDANSETRON HCL/PF 4 MG/2 ML VIAL IVP PRN (02:21)
--- NOTE | 2022-02-19 02:26 | NUR ---
RN NOTES: PT C/O NAUSEA. HAD ONE EPISODE OF VOMITING. ZOFRAN GIVEN PER PRN ORDERED. PT TOLERATED WELL. WILL CONTINUE TO MONITOR
[2022-02-19 04:00] VITALS: BP 83/49
[2022-02-19 06:40] LABS: CALCIUM, SERUM 7.1 mg/dL (8.5-10.1); CREATININE 1.6 mg/dL (0.6-1.3); PHOSPHORUS 3.8 mg/dL (2.5-4.9); POTASSIUM 3.3 mmol/L (3.5-5.1)
--- NOTE | 2022-02-19 06:40 | NUR ---
RN CLOSING NOTES PATIENT IN BED. AWAKE, ALERT AND ORIENTED X 4 AND VERBALLY RESPONSIVE. ON O2 6L/MIN, O2 SAT 97% AND PT TOLERATED WELL. BREATHING EVEN AND UNLABORED. STILL NOTED HEART RATE HIGH. OLD IV ACCESS DISLODGED, NEW IV ACCESS ON LAC#22G INTACT AND PATENT. RUNNING NS @75CC/HR. PT STILL C/O PAIN ON BACK AREA. ALL SAFETY MEASURE IN PLACE. SIDE RAILS UP X2, BED IN LOWEST POSITION AND LOCKED. PLACE CALL LIGHT WITHIN REACH. WILL ENDORSE TO MORNING SHIFT NURSE.
[2022-02-19] MEDS: HYDROCODONE/APAP 5/325MG TABLET PO PRN (06:45)
--- NOTE | 2022-02-19 06:53 | NUR ---
RN NOTES: PT STILL C/O PAIN 7/10 PAIN SCALE BACK AREA. NORCO GIVEN ORDERED. PT TOLERATED WELL. WILL CONTINUE TO MONITOR
[2022-02-19 07:42] LABS: MAGNESIUM 0.9 mg/dL (1.8-2.4)
[2022-02-19 07:44] LABS: BASOPHILS % (AUTO) 0.1 % (0.0-2.0); HEMATOCRIT 38 % (33-45); HEMOGLOBIN 13.2 g/dL (11.5-14.8); LYMPHOCYTES # (AUTO) 0.6 K/uL (0.8-4.8); LYMPHOCYTES % (AUTO) 6.4 % (20.0-44.0); MEAN CORPUSCULAR HGB CONC 34 g/dl (31.0-36.0); MEAN CORPUSCULAR VOLUME 89 fL (82-100); MONOCYTES # (AUTO) 0.7 K/uL (0.1-1.30); MONOCYTES % (AUTO) 7.4 % (2.0-12.0); NEUTROPHILS % (AUTO) 86.1 % (43.0-81.0); PLATELET COUNT (AUTO) 314 K/uL (150-450); RED BLOOD CELL COUNT(AUTO) 4.31 MIL/uL (4.0-5.2); WHITE BLOOD COUNT (AUTO) 9.3 K/uL (4.3-11.0)
[2022-02-19 08:00] VITALS: BP 96/48
[2022-02-19] MEDS: BLOOD SUGAR DIAGNOSTIC 1 EACH STRIP VI SCH ×4 (08:09→21:42)
[2022-02-19] MEDS: MORPHINE SULFATE INJ 2 MG/ML DISP.SYRIN IV PRN ×4 (08:26→21:35)
[2022-02-19 09:52] LABS: BAND % (MANUAL) 35 % (0.0-5.0); NEUTROPHILS % (MANUAL) 43 (42-76)
[2022-02-19 09:53] LABS: LYMPHOCYTES % (MANUAL) 12 % (16-48); MONOCYTES % (MANUAL) 10 % (0-11.0)
[2022-02-19] MEDS ORDERED: IV NS 0.9% 1,000 ML IV PRN (10:30)
[2022-02-19] MEDS ORDERED: POTASSIUM CHLORIDE 10 MEQ TABLET.SA PO ONE (11:00)
[2022-02-19] MEDS: Magnesium 1GM/D5W 100ML PREMIX 100 ML IV SCH ×2 (11:23→12:44)
[2022-02-19] MEDS: ENOXAPARIN SODIUM 40 MG/0.4 ML DISP.SYRIN SQ SCH (11:24)
[2022-02-19] MEDS: DEXAMETHASONE SOD PHOSPHATE 10 MG/ML VIAL IV SCH (11:24)
[2022-02-19 12:00] VITALS: BP 83/49
[2022-02-19] MEDS: INSULIN REGULAR, HUMAN 100 UNIT/ML 3 ML VIAL SQ PRN ×3 (12:34→21:44)
[2022-02-19 16:00] VITALS: BP 96/62
[2022-02-19] MEDS: LEVOFLOXACIN 750 MG /D5W 150ML 750 MG in PREMIX 1 EA IV SCH (16:49)
--- NOTE | 2022-02-19 18:13 | NUR ---
RN CLOSING NOTES DR. TRAN AWARE PT SOB WITH FACEMASK, AND NC. PT COMPLAINS OF BACK PAIN AND REQUESTS MORPHINE (Q4). PT UNABLE TO AMBULATE AND REQUESTS BEDPAN. URINE DRUG SCREEN COLLECTED. PT BASELINE SINUS TACHYCARDIA
--- NOTE | 2022-02-19 19:35 | NUR ---
RN NOTE PATIENT IN BED RESTING. ALERT AND RESPONSIVE. ON O2 6L VIA NASAL CANNULA, NO SOB NOTED. ON TELE MONITOR, ST ON MONITOR. COMPLAINS OF SEVERE BACK PAIN, WILL ADMINISTER DUE PRN MED. IV ACCESS ON LEFT AC #22 PATENT, INFUSING NS @ 125ML/HR. BED LOCKED AND IN LOWEST POSITION. CALL LIGHT WITHIN REACH. ALL NEEDS ANTICIPATED.
[2022-02-19 20:00] VITALS: BP 91/53
--- NOTE | 2022-02-19 20:25 | NUR ---
PATIENT NOTED WITH LOW OXYGEN SATURATION AT 83-85% ON 6L NC. STRONGLY REFUSING SIMPLE MASK WHEN OFFERED STATING SHE FEELS CLAUSTROPHOBIC WITH IT. EXPLAINED THE RISKS OF HER REFUSAL TO BE PUT ON HIGHER OXYGEN BUT PATIENT CONT TO STRONGLY REFUSE AND STATED SHE WOULD RATHER BE INTUBATED. TACTICAL DECEPTION PLANS OFFICER SADIA MADE AWARE OF PATIENT CONDITION WITH ORDER TO DO ABG AND PUT PATIENT ON HI FLOW O2. RT MADE AWARE OF NEW ORDERS.
[2022-02-19] MEDS: ACETAMINOPHEN 325 MG TABLET PO PRN (20:34)
--- NOTE | 2022-02-19 21:18 | NUR ---
RN NOTE RELAYED ABG RESULT TO BILLY MCCULLOUGH WITH ORDERS TO KEEP PATIENT ON O2 6L VIA NASAL CANNULA. PATIENT O2 SAT 92-95%.
[2022-02-19 21:34] LABS: ABG BASE EXCESS -6.1 mmol/L; ABG PO2 53.1 mmHg (75.0-100.0); AaDO2 231.4 mmHg; COHb 1.2 % (0.5-1.5); O2Hb 86.9 % (94.0-97.0); SITE, ABG Right Radial; VENT MODE, BG Nasal Cannula
[2022-02-19] MEDS: *INSULIN REGULAR(HUMULIN R)HUM 100 UNIT/ML VIAL SQ PRN (22:00)
[2022-02-20] VITALS: BP 83/49
--- NOTE | 2022-02-20 01:19 | NUR ---
RN NOTE SPOKE WITH BILLY MCCULLOUGH ON-CALL. INFORMED PATIENT UNABLE TO URINATE IN BED REGAN X2. NOTED WITH 700 CC URINE ON BLADDER SCAN. ALSO INFORMED HIM, PATIENT BLOOD PRESSURE 75/49 AND IS REQUESTING FOR PAIN MEDICATION FOR BACK PAIN. RECEIVED NEW ORDERS TO INSERT [place], NS 500CC BOLUS NS, AND OK TO GIVE NORCO PRN ORDER FOR PAIN. NOTED AND CARRIED OUT. CHARGE NURSE GIOVANI LUCAS.
[2022-02-20] MEDS ORDERED: IV NS 0.9% 500 ML IV ONE (01:30)
[2022-02-20] MEDS: HYDROCODONE/APAP 5/325MG TABLET PO PRN ×3 (01:54→22:00)
[2022-02-20] MEDS: ONDANSETRON HCL/PF 4 MG/2 ML VIAL IVP PRN (02:33)
--- NOTE | 2022-02-20 03:22 | NUR ---
RN NOTE SPOKE WITH BILLY MCCULLOUGH. INFORMED HIM, PATIENT BLOOD PRESSURE 79/48 AFTER 500 NS BOLUS AND ALSO PATIENT IS REQUESTING MEDICATION TO HELP HER RELAX AND SLEEP. BILLY MCCULLOUGH WITH ORDER FOR NS 1L BOLUS. NOTED AND CARRIED OUT. GIOVANI CHARGE NURSE AWARE.
[2022-02-20] MEDS ORDERED: IV NS 0.9% 1,000 ML IV ONE (03:30)
[2022-02-20 04:00] VITALS: BP 84/52
--- NOTE | 2022-02-20 07:07 | NUR ---
RN NOTE PATIENT ALERT AND AWAKE. CONTINUES ON O2 6L VIA NASAL CANNULA, O2 SAT 92-96%. BLOOD PRESSURE 100/59. URINE OUTPUT ON WILSON CATH 700CC PAM URINE. IV ACCESS LAC #22 NS @ 125CC/HR. NO INFILTRATION NOTED. BED LOCKED AND IN LOWEST POSITION. CALL LIGHT WITHIN REACH. WILL ENDORSE TO AM SHIFT.
--- NOTE | 2022-02-20 07:59 | NUR ---
TELE/RN OPENING NOTE RECEIVED PATIENT ALERT, AWAKE AND ORIENTEDX3, ABLE TO MAKE NEEDS KNOWN. CONTINUES ON O2 6L VIA NASAL CANNULA, O2 SAT 92-96%. IV ACCESS ON LAC #22G IS INTACT WITH A RUNNING NS @ 125CC/HR. NO INFILTRATION NOTED. BED LOCKED AND IN LOWEST POSITION. SIDE RAILS UPX2, CALL LIGHT WITHIN REACH. WILL CONTINUE WITH THE PLAN OF CARE
[2022-02-20 08:00] VITALS: BP 91/55
[2022-02-20] MEDS: BLOOD SUGAR DIAGNOSTIC 1 EACH STRIP VI SCH ×4 (08:23→22:23)
[2022-02-20] MEDS: DEXAMETHASONE SOD PHOSPHATE 10 MG/ML VIAL IV SCH (08:23)
[2022-02-20] MEDS: ENOXAPARIN SODIUM 40 MG/0.4 ML DISP.SYRIN SQ SCH (08:25)
--- NOTE | 2022-02-20 08:49 | NUR ---
PATIENT'S BLOOD SUGAR IS 175, 3 UNITS INSULIN PER SLIDING SCALE WITHHELD DUE TO PATIENT DID NOT EAT BREAKFAST. WILL MONITOR.
--- NOTE | 2022-02-20 08:50 | NUR ---
PATIENT REFUSED TELEMONITORING. WILL NOTIFY
[2022-02-20 08:57] LABS: BASOPHILS % (AUTO) 0.1 % (0.0-2.0); EOSINOPHILS % (AUTO) 0.1 % (0.0-6.0); HEMATOCRIT 40 % (33-45); HEMOGLOBIN 13.7 g/dL (11.5-14.8); LYMPHOCYTES # (AUTO) 0.2 K/uL (0.8-4.8); LYMPHOCYTES % (AUTO) 5.7 % (20.0-44.0); MEAN CORPUSCULAR HGB CONC 34 g/dl (31.0-36.0); MEAN CORPUSCULAR VOLUME 89 fL (82-100); MONOCYTES # (AUTO) 0.2 K/uL (0.1-1.30); NEUTROPHILS # (AUTO) 3.1 K/uL (1.8-8.9); NEUTROPHILS % (AUTO) 88.1 % (43.0-81.0); PLATELET COUNT (AUTO) 290 K/uL (150-450); RED BLOOD CELL COUNT(AUTO) 4.52 MIL/uL (4.0-5.2); WHITE BLOOD COUNT (AUTO) 3.5 K/uL (4.3-11.0)
[2022-02-20 09:16] LABS: CALCIUM, SERUM 7.1 mg/dL (8.5-10.1); CREATININE 0.8 mg/dL (0.6-1.3); POTASSIUM 4.1 mmol/L (3.5-5.1)
[2022-02-20] MEDS: IV NS 0.9% 1,000 ML IV SCH ×2 (11:07→20:30)
[2022-02-20] MEDS: ACETAMINOPHEN 325 MG TABLET PO PRN (11:40)
[2022-02-20 12:11] VITALS: BP 98/54
--- NOTE | 2022-02-20 12:30 | NUR ---
PATIENT'S BS IS 209, PATIENT REFUSED TO EAT LUNCH AND REFUSED INSULIN COVERAGE. WILL MONITOR.
--- NOTE | 2022-02-20 14:26 | NUR ---
"SS Consult: SS consult for homelessness and drug abuse. Pt. Is a 31-year-old female who demonstrates adequate insight to the reason for hospitalization. Per pt., she presented herself to hospital for pneumonia. Pt. was oriented x3, alert, and cooperative. During interview, pt. was capable of following directions, made appropriate eye-contact, and appeared unkempt. Pt.s speech was at a normal rate and pt.s mood was irritable. Pt. reported no hx of mental health, substance abuse, denies suicidal ideation, or homicidal ideation. Pt. denies auditory hallucinations, visual hallucinations, paranoia, or delusions. SW explored pt.s living situation. Pt. stated that she lives with her aunt Isabell [[phone]] [[address] [place] [address]]. Per pt., she reports having adequate support from her aunt. Pt. denied any drug use, SW offered rehab and addiction resources, but pt. stated that she does not have a problem. Plan: SW provided available resources and pt. rejected. Upon discharge, per pt., she can return back home with her aunt Isabell [[address] [place] [address]]. Resources Provided: Winter Shelters: SPA 2 | [facility] Address: Confidential (call for location ) Population Served: Coed # of Beds: 57 SPA 4 | [facility] Provider: Home at Last Address: [address] [id number] # of Beds: 49 Population Served: Coed [facility] 6 | [facility] Provider: Home at Last Address: [address] [facility], [address] # of Beds: 49 Population Served: Coed [facility] Provider: Lise Chen KYYennifer Address: [address] [place] [address] # of Beds: 20 Population Served: Women [facility] Facility Provider: Home at Last Address: [address] [facility] [address] # of Beds: 30 Population Served: [facility] SPA 8 | [facility] Provider: [facility] Address: [address] [facility] [address] # of Beds: 65 Population Served: Coed Year-round shelters: [facility] [place] [address] [place] [address] ; [facility] [place] [address] [place] [address]; [facility] [id number] [facility] [address] Winter Shelters: [place] Pikekamran Alexander Provider: [facility] Address: [address] [place], [address] # of Beds: 47 Population Served: Coed [facility] 6 | [facility] Karen Moreno [place] Provider: Home at Last Address: [address] [place] [address], [address] # of Beds: 66 Population Served: Coed [place] Provider: First to Serve Address: [address] [facility], [address] # of Beds: 56 Population Served: [facility] Chris [place] Provider: /[facility] Address: [address] [facility], [address] # of Beds: 49 Population Served: Coed [facility] 8 | [facility] Provider: First to Serve Address: [address] [facility], [address] # of Beds: 37 Population Served: [facility] Hygiene: [facility] [facility]: [address] [address] Anaya ; [facility] [address] [facility] Tina ; [facility] [address] . Food Resources: [place] [facility] at [facility]- [address] [place]; Meet Each Need with Dignity (MEND) [address] [facility] Ashleigh; [facility] [address] [facility]; [facility] [address] [place] [facility]. Mental Health resources provided: PSYCHIATRIC [address] [place], [place] [address] ; [facility] [address] [facility] [address], [place], [place] [id number] ; [facility] [address] [place] [place], [place] [id number] ; [facility] [address] [place], [place] [address] Healthcare Clinics: [facility] [address] [facility], [address] [place]. [place] ; [facility] [address] [facility] [address] [place] [address]; [facility] [address] [facility]. [place] [phone] Counseling--Outpatient [facility] [address] [facility], [place] [address] (Specializes in in-depth psychotherapy for emotional distress: anxiety, depression, interpersonal conflicts, life transitions, childhood abuse) [facility] [address] [place] [address] (Assist with solving problem marital difficulties, separation & divorce, aging parents, & grief, chronic & terminal illness) [facility] [address] [place] [address] (Deal with loss & grief, anxiety, marital difficulties) Homebound/Mental Health Services [address] [facility], [address] [place], [place] [address] (Provide in-home mental services to people who are incapable of leaving their homes) Organization for Needs of the Elderly Senior Service/Resource Center [address] [address] [facility] [place] [address] [facility] [address] [place] [address] PSYCHIATRIC OUTPATIENT SERVICES [facility] Partial Hospitalization and Intensive Outpatient Program (Managed Care and [place] Only)[address] [facility] [phone] [facility] Partial Hospitalization and Outpatient [id number] [place], [place] [phone] [facility] [place] [id number] [facility]. [address] [place], [place] [phone] [facility] Partial Hospitalization and Outpatient [id number] [facility] Hospital[facility]rien, [phone] Substance Abuse resources provided included: [facility] Substance Abuse Self-Helpline ([facility]) ; [facility]LP [address] [facility]. [place] [phone] ; [facility] [address] [facility] [address] ; [facility] Rehabilitation Program [address] [facility] [address] ; [facility] [address] [facility] [phone] ; [facility] [address] [facility] [address] ; [facility] [address] [facility] [address] ; [facility] Substance Abuse Helpline([facility])-[facility] ; [facility] ; [facility]; [facility]; [facility] [place]; [facility]; [facility] [place]; [facility] [place]; [facility] [place]; [facility] [place]; Alcoholics Anonymous -SFV; Renny ; Marijuana Anonymous -SFV; Narcotics Anonymous www.na.org;"
[2022-02-20 16:20] VITALS: BP 99/50
[2022-02-20] MEDS: LEVOFLOXACIN 750 MG /D5W 150ML 750 MG in PREMIX 1 EA IV SCH (16:26)
[2022-02-20] MEDS: INSULIN REGULAR, HUMAN 100 UNIT/ML 3 ML VIAL SQ PRN (17:54)
--- NOTE | 2022-02-20 19:24 | NUR ---
TELE/RN CLOSING NOTE PATIENT IN BED, ALERT, AWAKE AND ORIENTEDX3, ABLE TO MAKE NEEDS KNOWN. CONTINUES ON O2 AT 6L VIA NASAL CANNULA, O2 SAT 92-96%. IV ACCESS ON LAC #22G IS INTACT WITH A RUNNING NS @ 100CC/HR. NO INFILTRATION NOTED. ALL NEEDS MET. KEPT PATIENT COMFORTABLE. BED LOCKED AND IN LOWEST POSITION. SIDE RAILS UPX2, CALL LIGHT WITHIN REACH. WILL ENDORSE TO THE NEXT SHIFT FOR BALDO.
--- NOTE | 2022-02-20 19:30 | NUR ---
TELE/RN OPENING NOTE RECEIVED PATIENT IN BED, A/O X 3, ABLE TO VERBALIZE NEEDS. NO S/SX OF ACUTE DISTRESS NOTED AT THIS TIME. PT ON O2 AT 6L VIA NASAL CANNULA, SATING AT 95%. NOTED IV ACCESS ON LAC #22G, INTACT, PATENT AND FLUSHES WELL, RUNNING NS @ 100 CC/HR. NO INFILTRATION AT THE SITE NOTED. KEPT PATIENT DRY AND COMFORTABLE. SAFETY MEASURES PROVIDED. BED IN LOWEST POSITION, LOCKED. SIDE RAILS UPX2, BED ALARM ON. CALL LIGHT WITHIN REACH. WILL CONTINUE TO MONITOR.
[2022-02-20 20:00] VITALS: BP 91/47
[2022-02-20] MEDS: *INSULIN REGULAR(HUMULIN R)HUM 100 UNIT/ML VIAL SQ PRN (22:30)
[2022-02-21] VITALS (29 sets, daily range): BP systolic 33–164; BP diastolic 21–108
[2022-02-21] MEDS: ONDANSETRON HCL/PF 4 MG/2 ML VIAL IVP PRN (00:22)
[2022-02-21] MEDS: MORPHINE SULFATE INJ 2 MG/ML DISP.SYRIN IV PRN ×2 (02:18→06:33)
[2022-02-21] MEDS: IV NS 0.9% 1,000 ML IV SCH ×2 (06:00→16:18)
[2022-02-21 06:55] LABS: EOSINOPHILS % (AUTO) 0.1 % (0.0-6.0); HEMATOCRIT 37 % (33-45); HEMOGLOBIN 12.6 g/dL (11.5-14.8); LYMPHOCYTES # (AUTO) 0.2 K/uL (0.8-4.8); LYMPHOCYTES % (AUTO) 4.8 % (20.0-44.0); MEAN CORPUSCULAR HGB CONC 34 g/dl (31.0-36.0); MEAN CORPUSCULAR VOLUME 89 fL (82-100); MONOCYTES # (AUTO) 0.1 K/uL (0.1-1.30); MONOCYTES % (AUTO) 3.4 % (2.0-12.0); NEUTROPHILS # (AUTO) 3.9 K/uL (1.8-8.9); NEUTROPHILS % (AUTO) 91.7 % (43.0-81.0); PLATELET COUNT (AUTO) 310 K/uL (150-450); RED BLOOD CELL COUNT(AUTO) 4.17 MIL/uL (4.0-5.2); WHITE BLOOD COUNT (AUTO) 4.2 K/uL (4.3-11.0)
--- NOTE | 2022-02-21 07:00 | NUR ---
FRONT DESK AUXILIARY OPENING NOTE PT IN BED, AWAKE, A/O X 4, TOLERATING WELL ON O2 VIA NC AT 6L. PT HAS IV LINE AT LAC #22G LINE, RUNNING NS AT 100 ML/HR. SAFETY MEASURES IN PLACE: BED IN LOWEST POSITION, LOCKED. BED ALARM ON. CALL LIGHT WITHIN REACH. WILL CONTINUE TO MONITOR.
[2022-02-21 07:04] LABS: CALCIUM, SERUM 7.4 mg/dL (8.5-10.1); CREATININE 0.7 mg/dL (0.6-1.3); PHOSPHORUS 2.1 mg/dL (2.5-4.9); POTASSIUM 4.2 mmol/L (3.5-5.1)
--- NOTE | 2022-02-21 07:26 | NUR ---
TRUCK WASHER CLOSING NOTES PT IN BED, AWAKE, A/O X 4, ON O2 VIA NC AT 6L, O2 SAT 97%. PT HAS IV LINE AT LAC #22G LINE, RUNNING NS AT 100 ML/HR. PT REFUSED TELE MONITORING THE WHOLE SHIFT. PT ON CCHO, CONSISTENT CARB DIET. ALL DUE MEDS GIVEN ORDERED. ALL NEEDS ATTENDED TO. TURNED AND REPOSITIONED. SAFETY MEASURES PROVIDED. BED IN LOWEST POSITION, LOCKED. BED ALARM ON. CALL LIGHT WITHIN REACH. WILL ENDORSE TO AM SHIFT FOR BALDO.
[2022-02-21] MEDS: BLOOD SUGAR DIAGNOSTIC 1 EACH STRIP VI SCH ×3 (08:16→17:43)
[2022-02-21] MEDS ORDERED: K PHOS NEUTRAL 250 MG TABLET PO ONE (08:30)
[2022-02-21] MEDS: INSULIN REGULAR, HUMAN 100 UNIT/ML 3 ML VIAL SQ PRN ×2 (08:33→17:56)
[2022-02-21] MEDS: ENOXAPARIN SODIUM 40 MG/0.4 ML DISP.SYRIN SQ SCH (08:34)
[2022-02-21] MEDS: DEXAMETHASONE SOD PHOSPHATE 10 MG/ML VIAL IV SCH (08:34)
[2022-02-21 09:41] LABS: ABG BASE EXCESS -6.3 mmol/L; ABG PH 7.343 (7.350-7.450); ABG PO2 48.1 mmHg (75.0-100.0); AaDO2 225.7 mmHg; MetHb 0.1 % (0.0-1.5); O2Hb 84.1 % (94.0-97.0); SITE, ABG Right Radial; VENT MODE, BG 6L NC
--- NOTE | 2022-02-21 09:45 | NUR ---
RT NOTE POST ABG RESULTS SHOWN TO DR. CORONA. PLACE PT ON HFNC PER MD ORDER. SOON GELATIN PLANT SUPERVISOR NOTIFIED AND AWARE.
[2022-02-21] MEDS ORDERED: LORAZEPAM INJ 2 MG/ML VIAL IV PRN ×3 (10:30→16:30)
--- NOTE | 2022-02-21 11:36 | NUR ---
SOLAR INSTALLER TECHNICIAN NOTE PATIENT NOTED WITH AGITATION AND ATTEMPTING TO REMOVE OXYGEN TUBING. 0.5 MG ATIVAN IVP ADMINISTERED ORDERED. WILL CONTINUE TO MONITOR FOR S/S OF AGITATION.
[2022-02-21] MEDS ORDERED: DOPamine 400 MG/D5W 250 ML RTU BAG IV PRN (12:00)
--- NOTE | 2022-02-21 12:30 | NUR ---
STONE FABRICATORWRAPPER STRIPPER NOTE PATIENT WITH PERSISTENT AGITATION AND REPEATEDLY PULLED OFF OXYGEN DELIVERY TUBING, BILATERAL SOFT WRIST RESTRAINTS PLACED AT ABOUT 1200. PATIENT CIRCULATION, MOTOR, AND SENSATION INTACT IN BILATERAL WRISTS. PATIENT PERSISTED WITH AGITATION AND UNSTABLE OXYGEN LEVELS AND WAS TRANSFERRED TO ICU. PATIENT TRANSPORTED VIA GURNEY, ALL DOCUMENTS TRANSFERRED ALONG WITH OXYGEN DELIVERY SYSTEM ATTACHED TO PORTABLE O2 TANK. REPORT PROVIDED TO ARINA GALAN.
--- NOTE | 2022-02-21 12:45 | NUR ---
RN NOTE PT RECEIVED FROM CHICHI. PT IS ON HIGH FLOW AT THIS TIME AND AGITATED WITH BILATERAL SOFT WRIST RESTRAINTS. REPORT RECEIVED FROM ARINA SOARES. WILL CONTINUE TO MONITOR THIS SHIFT.
[2022-02-21] MEDS ORDERED: CLINDAMYCIN IV RTU IN D5W 900 MG/50 ML PIGGYBACK IV SCH (13:00)
--- NOTE | 2022-02-21 13:33 | NUR ---
pt always take off her high flow nasal cannula. rn aware. Addendum: 02/21/22 at 1335 by JESSICA GUIDO RT Amended: Links added.
[2022-02-21] MEDS ORDERED: CLINDAMYCIN 600 MG in IV D5W 50 ML IV SCH (14:00)
[2022-02-21] MEDS ORDERED: IV NS 0.9% 250 ML IV PRN (14:30)
[2022-02-21] MEDS ORDERED: VANCOMYCIN 1 GM in IV D5W 250 ML IV ONE (15:00)
[2022-02-21] MEDS ORDERED: MORPHINE SULFATE INJ 2 MG/ML DISP.SYRIN IV PRN (16:00)
--- NOTE | 2022-02-21 16:30 | NUR ---
RN NOTE: TEMP PT TEMP 100.7. PT UNABLE TO TAKE PO MEDS AT THIS TIME DUE TO AMS A/OX1. WILL INITIATE COOLING MEASURES.
[2022-02-21] MEDS: LEVOFLOXACIN 750 MG /D5W 150ML 750 MG in PREMIX 1 EA IV SCH (17:28)
--- NOTE | 2022-02-21 17:52 | NUR ---
RN NOTE ATTEMPTED TO GIVE PT PO ACETAMINOPHEN. PT UNABLE TO SWALLOW PILLS AND REFUSED PER RECTUM ACETAMINOPHEN.
--- NOTE | 2022-02-21 18:45 | NUR ---
RN NOTE: CODE BLUE PT BECAME NO RESPONSIVE, PT'S HR BEGAN TO DECREASE AND O2 SATURATION WAS UNREADABLE. INITIATED CODE BLUE. SEE CODE BLUE SHEET.
--- NOTE | 2022-02-21 18:54 | NUR ---
RT NOTE PT FOUND UNRESPONSIVE. CODE BLUE INITIATED. PT ORALLY INTUBATED WITH 7.5 ET TUBE @ 24 CM. ET TUBE SECURED VIA ANCHOR FAST PER MD DOE. BILATERAL CHEST RISE NOTED. SUCTION DONE, SMALL THIN BLOODY SECRETIONS NOTED. SPO2 READING LOW. WILL CONTINUE TO MONITOR CLOSELY. WILL AWAIT FURTHER ORDERS AND DRAW ABG FOR RESULTS.
--- NOTE | 2022-02-21 19:00 | NUR ---
ICU/PLATFORM SUPERVISOR PT IS S/P INTUBATION FROM NUSRAT TJIERINA. NUSRAT BLUE CALLED AT 1848, PEA ON MONITOR. AT THIS TIME ER MD RESPONDED PT WAS INTUBATED. STAT XRAY FOR ETT TUBE PLACEMENT. 1855-PT RETURNED TO [facility] WITH SATURATION 70'S WITH GOOD WAVE FORM ON THE MONITOR. MD LOOKED AT TODAY LATEST CHEST XRAY FROM 02/21/22 AM SHOWING LARGE RIGHT LUNG PNA. N/G TUBE WAS PLACED, LARGE AMOUNT GREEN GASTRIC FLUID WAS SUCTIONED FROM THIS PT. WILL CONTINUE TO CLOESLY MONITOR THIS PT.
[2022-02-21] MEDS ORDERED: EPINEPHRINE (1:1000) 1 MG/ML AMPUL SUBCUT ONE (19:06)
[2022-02-21] MEDS ORDERED: SODIUM BICARBONATE SYR 50 MEQ/50 ML DISP.SYRIN IV ONE ×2 (19:06→20:41)
[2022-02-21] MEDS ORDERED: ATROPINE SULFATE 1 MG/10 ML DISP.SYRIN IV ONE (19:06)
--- NOTE | 2022-02-21 19:15 | NUR ---
ICU/COMPUTER EQUIPMENT INSTALLER REPORT RECIEVED FROM DAY NURSE POST FIRST CODE.
[2022-02-21] MEDS ORDERED: PHENYLEPHRINE 100 MG in IV NS 0.9% 240 ML IV PRN (19:30)
[2022-02-21] MEDS ORDERED: PROPOFOL 100 ML IV PRN (19:30)
--- NOTE | 2022-02-21 19:30 | NUR ---
RN CLOSING NOTE PT IS IN BED ELEVATED 30 DEGREES. PT IS ON MECHANICAL VENT WITH ALL PRESCRIBED SETTINGS AT THIS TIME AFTER CODE BLUE. OG IS IN PLACE WITH POSITIVE PLACEMENT AND CLAMPED. FC IS IN PLACE DRAINING URINE TO GRAVITY -450ML. PT ALSO HAS BILATERAL SOFT WRIST RESTRAINTS. IV ACCESS L UA MIDLINE INFUSING WITH NS @100ML/HR. BED IS LOCKED IN LOWEST POSITION X2 BED RAILS UP AND ALL HOSPITAL SAFETY PROTOCOLS ARE IN PLACE. WILL ENDORSE TO AGRICULTURAL AIRCRAFT PILOT NURSE FOR BALDO.
[2022-02-21] MEDS ORDERED: PHENYLEPHRINE 10 MG/ML VIAL ONE (19:35)
[2022-02-21 19:46] LABS: CALCIUM, SERUM 7.2 mg/dL (8.5-10.1); POTASSIUM 5.1 mmol/L (3.5-5.1)
--- NOTE | 2022-02-21 19:50 | NUR ---
ICU/TURBINE SUBASSEMBLER DIPRIVAN STARTED @1922 DUE TO PT BEGINNING TO WAKE UP. SEDATION WAS THEN TURNED OFF@1934 FOR LOW BLOOD PRESSURE. SECOND CODE LILLIANA CALLED AT 1934, PT WAS PEA ON THE MONITOR. SEE SECOND CODE BLUE SHEET FOR COMPRESSIONS AND DRUG PUSHES. PT RETURN TO [facility] @1938. TEMP WAS TAKEN 102.5, COOLING MEASURES DONE. STAT CBC, BMP DONE. CALLED THE EMPLOYEE WELFARE MANAGER MD SHARMA TO EVALUATE PT AND FOR PRESSOR. 1946-MARTHA WAS STARTED BY FISHING REEL ASSEMBLER NURSE FOR LOW BLOOD PRESSURE 75/38, HEART RATE 128. WILL CONTINUE TO MONITOR THIS CRITICAL PT.
[2022-02-21] MEDS ORDERED: NOREPINEPHRINE 4 MG/4 ML AMPUL IV ONE (20:24)
[2022-02-21 20:27] LABS: EOSINOPHILS % (AUTO) 0.3 % (0.0-6.0); HEMATOCRIT 38 % (33-45); HEMOGLOBIN 12.5 g/dL (11.5-14.8); LYMPHOCYTES # (AUTO) 0.8 K/uL (0.8-4.8); LYMPHOCYTES % (AUTO) 24.8 % (20.0-44.0); MEAN CORPUSCULAR HGB CONC 33 g/dl (31.0-36.0); MEAN CORPUSCULAR VOLUME 91 fL (82-100); MONOCYTES # (AUTO) 0.1 K/uL (0.1-1.30); MONOCYTES % (AUTO) 2.4 % (2.0-12.0); NEUTROPHILS # (AUTO) 2.5 K/uL (1.8-8.9); NEUTROPHILS % (AUTO) 72.5 % (43.0-81.0); PLATELET COUNT (AUTO) 320 K/uL (150-450); RED BLOOD CELL COUNT(AUTO) 4.13 MIL/uL (4.0-5.2); WHITE BLOOD COUNT (AUTO) 3.4 K/uL (4.3-11.0)
[2022-02-21] MEDS ORDERED: NOREPINEPHRINE 32 MG in IV NS 0.9% 218 ML IV PRN (20:30)
[2022-02-21] MEDS ORDERED: EPINEPHRINE (1:10,000) SYRINGE 1 MG/10 ML DISP.SYRIN IVP ONE (20:41)
--- NOTE | 2022-02-21 20:45 | NUR ---
ICU/CONSTRUCTION GRIP 2031-SECOND PRESSOR WAS STARTED, LEVO BY AGRICULTURAL PRODUCTION ENGINEER NURSE. MARTHA IS CURRENTLY MAXED OUT. LEVO IS STARTED FOR , HEART RATE 49. 2037-THIRD CODE BLUE CALLED FOR PEA, SEE CODE BLUE SHEET FOR DRUG PUSHED, RT WITH CPR, AND NURSES. AT THIS TIME CALLED FAMILY A THIRD TIME, GOT A HOLD OF AUNNurys [place] [phone], EXPLAINED WHAT HAPPENED. AT THIS TIME DR ELIAZAR ALATORRE MD WHO RESPONDED TO THE TWO ORDER CODES PRONOUNCED PT @2041 ON THIRD CODE. FAMILY WAS NOIFIED WHILE ON THE PHONE, EXPLAINED THAT FAMILY COULD COME SEE BODY. FAMILY SAID NO THAT THEY WOULD COME TOMORROW 02/22/22. Addendum: 02/21/22 at 2354 by ALICIA BECKER CONSTRUCTION GRIP 2054-MARTHA WAS ON THE WAY TO BE MAXED HOWEVER BLOOD PRESSURE IS CRITICAL LOW STARTED THE SECOND PRESSOR.
[2022-02-21 20:55] LABS: BAND % (MANUAL) 20 % (0.0-5.0); EOSINOPHILS % (MANUAL) 1 % (0-4); LYMPHOCYTES % (MANUAL) 27 % (16-48); MONOCYTES % (MANUAL) 13 % (0-11.0); NEUTROPHILS % (MANUAL) 39 (42-76)
--- NOTE | 2022-02-21 21:50 | NUR ---
ICU/TUGBOAT MATE PT IS A UTILITY FORESTER'S CASE , HOWEVER PT IS RELEASED TO MORTUARY. MORTUARY SIGN OUT TO FOLLOW UP WITH THE UTILITY FORESTER WHEN THE BODY HAS ARRIVED. FAMILY MADE AWARE THAT THE BODY IS A CORONERS CASE.
[2022-02-21] MEDS ORDERED: VANCOMYCIN 1 GM in IV D5W 250 ML IV SCH (22:00)
--- NOTE | 2022-02-21 22:15 | NUR ---
ICU/MATERIALS PLANNING ANALYST CALLED [facility], DUE TO PT'S UNKNOWN IV DRUG HISTORY, [facility] DECLINE THE BODY. CASE #[id number]. CHARGE NURSE MADE AWARE OF THIS AND ALSO LIQUOR BLENDER ANANDA.
--- NOTE | 2022-02-21 22:40 | NUR ---
ICU/BOBBIN DOFFER BODY TAKEN TO MORGUE, ALL TUBES REMAIN IN PLACE FOR CORONERS CASE.
--- NOTE | 2022-02-21 23:54 | NUR ---
AUNT MERCED [phone] RESPONSIBLE LIBERTARIAN.
== END 2022-02-21 20:42 | DRG 720 ==
LOC: ER 14:47 → TELE1 20:00 → ICU 02-21 12:36
PROVIDERS: ADMIT Internal Medicine; ATTEND Internal Medicine
PROC: 5A1935Z Respiratory Ventilation, Less than 24 Consecutive Hours (ICD-10-PCS; principal; 2022-02-21)
PROC: 5A12012 Performance of Cardiac Output, Single, Manual (ICD-10-PCS; 2022-02-21)
PROC: 0BH18EZ Insertion of Endotracheal Airway into Trachea, Via Natural or Artificial Opening Endoscopic (ICD-10-PCS; 2022-02-21)
PROC: 05H633Z Insertion of Infusion Device into Left Subclavian Vein, Percutaneous Approach (ICD-10-PCS; 2022-02-21)
PROC: B547ZZA Ultrasonography of Left Subclavian Vein, Guidance (ICD-10-PCS; 2022-02-21)
DX: A41.9 Sepsis, unspecified organism (principal); J96.01 Acute respiratory failure with hypoxia; J69.0 Pneumonitis due to inhalation of food and vomit; J15.9 Unspecified bacterial pneumonia; E43 Unspecified severe protein-calorie malnutrition; N17.9 Acute kidney failure, unspecified; E87.1 Hypo-osmolality and hyponatremia; E88.09 Other disorders of plasma-protein metabolism, not elsewhere classified; E86.1 Hypovolemia; E10.9 Type 1 diabetes mellitus without complications; G89.4 Chronic pain syndrome; Z88.0 Allergy status to penicillin; E87.6 Hypokalemia; Z20.822 Contact with and (suspected) exposure to COVID-19; Z86.16 Personal history of COVID-19; F19.11 Other psychoactive substance abuse, in remission; Z79.4 Long term (current) use of insulin
CPT/HCPCS: 31720; 36410; 36415; 36600; 71045-TC; 76705-TC; 80048-TC; 80076-TC; 81001; 82803-TC; 82962-TC; 83605-TC; 83690-TC; 83735-TC; 84100-TC; 84478-TC; 84484-TC; 84703-TC; 85025-TC; 85378-TC; 85730-TC; 86140-TC; 87040-TC; 87081-TC; 87086-TC; 92950-TC; 94002-TC; 94799-TC; 99082-TC; A4216; C9803; G0378; J0171; J0461; J1100; J1650; J1815; J1956; J2060; J2270; J2370; J2405; J3370; J3475; J3490; J7030; J7040; J7050; J7060; Q9967; U0003